=== PATIENT | female | born 1935 | race Caucasian/White ===

== ENCOUNTER 2018-06-01 20:06 | Emergency (ER) | payer MEDICARE, OTHER ==
[~2018-06-01] VITALS: Ht 160 cm; Wt 63.5 kg
[~2018-06-01 20:06] MED LIST: ACET325 PO; ASPI325 PO; CEPH500 PO; CYAN1000 PO; Cipro500 MG PO; ENOX40I SC; L THYROXINE PO; LEVSOD50 PO; METO25ER PO; NAPR220 PO; OXYACE5T PO; SERT25 PO; THYROID; VITAMIN D-32000 UNIT PO; Zofran Odt4 MG SL
== END 2018-06-01 22:02 | disposition home or self-care (01) ==
LOC: ER 20:06
DX: S52.501A Unspecified fracture of the lower end of right radius, initial encounter for closed fracture (principal); W10.9XXA Fall (on) (from) unspecified stairs and steps, initial encounter; Z88.8 Allergy status to other drugs, medicaments and biological substances; Z79.899 Other long term (current) drug therapy; Z87.891 Personal history of nicotine dependence
CPT/HCPCS: 29125; 73110; 99283-25

== ENCOUNTER 2022-09-28 15:21 | Inpatient (IN) | payer OTHER, MEDICARE ==
[~2022-09-28] VITALS: Ht 157.5 cm; Wt 44.5 kg
[~2022-09-28 15:21] MED LIST changes: -CYAN1000 PO; +VITAMIN B-122000 MC1 PO; -VITAMIN D-32000 UNIT PO; +Vitamin D1000 UNI1 PO
[2022-09-28] MEDS ORDERED: EUTHYROX50 MCG PO (16:22)
[2022-09-28 17:46] LABS: BASOPHILS ABSOLUTE AUTO 0.04 K/mm3 (0.00-0.23); BASOPHILS PERCENT AUTO 1 % (0-2); EOSINOPHILS ABSOLUTE AUTO 0.02 K/mm3 (0.00-0.68); EOSINOPHILS PERCENT AUTO 0 % (0-6); Hematocrit 32.2 % (33.0-51.0); IMMATURE GRAN ABSOLUTE AUTO 0.02 K/mm3 (0.00-0.10); IMMATURE GRAN PERCENT AUTO 0 % (0-1); LYMPHOCYTES ABSOLUTE AUTO 0.67 K/mm3 (0.84-5.20); LYMPHOCYTES PERCENT AUTO 9 % (21-46); MONOCYTES ABSOLUTE AUTO 0.34 K/mm3 (0.16-1.47); MONOCYTES PERCENT AUTO 5 % (4-13); Mean Corpuscular HGB 31.6 pg (26.0-34.0); Mean Corpuscular HGB Conc 34.2 g/dL (31.5-36.5); Mean Corpuscular Volume 93 fL (80-100); Mean Platelet Volume 9.4 fL (9.1-12.4); NEUTROPHILS ABSOLUTE AUTO 6.31 K/mm3 (1.96-9.15); NEUTROPHILS PERCENT AUTO 85 % (41-73); Platelet Count 170 K/mm3 (150-400); RDW Coefficient Variation 12.7 % (11.7-14.2); RDW Standard Deviation 42.9 fL (35.1-46.3); Red Blood Cell Count 3.48 M/mm3 (3.80-5.20)
[2022-09-28 18:17] LABS: Albumin, Blood 3.5 g/dL (3.4-5.0); Albumin/Globulin Ratio 1.2 (0.8-1.8); Bilirubin, Total 0.5 mg/dL (0.1-1.0); Bun/Creatinine Ratio 21.3 (12.0-20.0); Calcium, Blood 9.6 mg/dL (8.5-10.1); Creatinine, Blood 0.7 mg/dL (0.40-1.00); Potassium, Blood 3.3 mmol/L (3.5-5.5); Total Protein, Blood 6.5 g/dL (6.4-8.2)
--- NOTE | 2022-09-28 19:12 | NUR ---
ADMIT NOTE PATIENT NEW ADMIT FROM ER FOR LEFT HIP FX. TRANSFERRED TO BED. PATIENT'S DAUGHTER PRESENT AND ATTENTIVE. ALERT AND ORIENTED WITH OCC MILD FORGETFULNESS. LEFT LEG IS SHORTENED AND EXTERNALLY ROTATE. KNEE IS BENT AND PROPPED ON PILLOWS. THIGH IS SWOLLEN. SEVERE PAIN WITH MOVEMENT AND REPOSITIONING. HOWEVER RATES PAIN 2/10 AT REST. SCDC PLACED IN ROOM. PUREWICK SET UP IN ROOM. TELE PLACED, NSR AT 89 PER JOEL SUPERVISOR PROP MAKING. EMS FIELD START IV. CALLED DR CUNNINGHAM FOR FLUID ORDERS. REPORT GIVEN TO SENIOR FINANCIAL REPORTING ACCOUNTANT RN.
--- NOTE | 2022-09-28 21:45 | NUR ---
PHYSICIAN CONTACT: PT C/O LEFT JAW PAIN. REPORTS IT FEELS LIKE "SOMEONE HAS PUNCHED ME IN THE JAW." PT C/O NO OTHER PAIN OR DISCOMFORT. DENIES CHEST PAIN. BP WAS 192/[address] CUNNINGHAM CONTACTED, EKG AND TROPONIN ORDERED. PHYSICIAN WAS ALSO TOLD THAT POTASSIUM INFUSION WAS BURNING, PHYSICIAN AWARE.
[2022-09-29] MEDS ORDERED: LOSA25 PO (01:15)
[2022-09-29] MEDS ORDERED: Prozac20 MG PO (01:16)
--- NOTE | 2022-09-29 02:22 | NUR ---
PHYSICIAN CONTACT: PROVIDER INFORMED THAT PT HAS PULLED X2 IV AT THIS TIME AND HAS SOME OCCASSIONAL CONFUSION AND PULLS AT LINES. PT IS ABLE TO ANSWER APPROPRIATELY BUT NEEDS REDIRECTION DURING THOSE OCCASSIONAL TIMES OF CONFUSION. PT KEEPS SAYING "I NEED TO GET UP TO USE THE BATHROOM. REORIENTED AND EDUCATED ON THE FALL RISK AND BEDREST ORDER. PT APPEARS TO UNDERSTAND. NO NEW ORDERS AT THIS TIME.
--- NOTE | 2022-09-29 05:27 | NUR ---
CONTACTED PHYSICIAN: DISCUSSED HIGH BP WITH DR. LY. ORDERED TO STOP FLUIDS AT THIS TIME AND ORDER FOR HYDRALAZINE 10 MG IV Q6 PRN FOR SYSTOLIC >160 WAS OBTAINED.
--- NOTE | 2022-09-29 07:18 | NUR ---
SHIFT SUMMARY: PT REMAINED PAINFUL T/O THE SHIFT. MEDICATED PER EMAR ORDERS. BP REMAINED HIGH, HOSPITALIST WAS CONTACTED (SEE NOTED FOR FURTHER DETAILS.) HYDRALAZINE GIVEN AND FLUIDS HELD. PT REPORTED LEFT JAW PAIN EARLIER IN THE SHIFT, EKG ORDERED AND COMPLETED. TROPOININ LEVELS DRAWN. (SEE NOTE FOR FURTHER INFORMATION.) PT WAS SLIGHTLY CONFUSED T/O THE NIGHT. ABLE TO ANSWER QUESTIONS BUT CONFUSED ABOUT STAYING IN BED DUE TO FX. REOIRENTED. PT WAS PULLING AT HER IV AND LINES, PULLED [address] DUE TO PAIN WITH ATTEMPTING TO USE BEDPAN. NPO SINCE MIDNIGHT. AT THIS TIME PT IS RESTING IN BED WITH CALL LIGHT IN REACH. PLANS FOR SURGERY TODAY.
--- NOTE | 2022-09-29 08:36 | NUR ---
[employer] NOTIFIED THIS RN OF PROLONGED QTC INTERVALS THROUGHOUT NOC SHIFT. REPORTED CURRENT QTC INTERVAL TO BE 0.54 SECONDS LONG. THIS RN SPOKE WITH KARAN BURNETT DURING HIS CONSULT WITH PATIENT, ASKED TO HAVE CARDIOLOGY CONSULTED D/T PLANNING FOR SURGERY TODAY. DR SQUIRES CONSULTED. THIS RN ALSO NOTIFIED HOSPITALIST PATIENT IS ADMITTED TO THEIR SERVICES. NO NEW ORDERS FROM HOSPITALIST. NO CHANGES NOTED IN PATIENT CONDITION.
[2022-09-29 10:26] LABS: Potassium, Blood 3.9 mmol/L (3.5-5.5); Thyroid Stimulating Hormone 3.46 uIU/mL (0.360-4.800)
--- NOTE | 2022-09-29 17:17 | NUR ---
SHIFT SUMMARY NO ACUTE CHANGES THIS SHIFT. PATIENT HAS REMAINED BEDREST, PAIN MANAGED PER EMAR. PUREWICK IN PLACE W/ ATTENDS, CHANGED PRN. PATIENT KEPT NPO T/O DAY ALTHOUGH SURGERY WAS DELAYED TODAY D/T OR AVAILABILITY, PLAN FOR SURGERY TOMORROW 09/30/[address] HUANG. PLAN TO BE NPO AT MIDNIGHT. TELE IN PLACE, SEE PREVIOUS NOTE REGARDING PROLONGED QT INTERVALS. CARDIOLOGY CLEARED FOR SURGERY. CALL LIGHT IN REACH, USES APPROPRIATELY. WILL REPORT TO ONCOMING RN AT 1900.
--- NOTE | 2022-09-30 04:28 | NUR ---
SUMMARY NO NEW ISSUES, PT SLEPT FOR MOST OF SHIFT. PUREWICK APPLIANCE CHANGED OUT, PT TOLERATING IT WELL. PT DID PULL OUT HER IV DURING THE SHIFT, IT WAS REPLACED. PT HAS REMAINED NPO SINCE [place]. CALL LIGHT IN REACH AND BED ALARM ON.
--- NOTE | 2022-09-30 11:18 | NUR ---
PATIENT IS BEING TAKEN BACK TO OR.
--- NOTE | 2022-09-30 14:30 | NUR ---
SHIFT SUMMARY: PATIENT CAME BACK FROM PACU TODAY AT 1430. POD 0 LEFT HIP REPAIR PATIENT IS DROWSY BUT EASILY AWOKEN WITH TOUCH/SAYING HER NAME. HER LEFT HIP HAS FOAM WITH GAUZE DRESSING THAT IS C/D/I. DENIES NUMBNESS OR TINGLING AND CAN MOVE FINGERS AND TOES WHEN ASKED. PATIENT DENIES PAIN AT THIS TIME. SHE HAS THE PUREWICK IN PLACE WITH YELLOW URINE DRAINING INTO THE CANESTER. SHE IS TOLERATING SMALL AMOUNTS OF PO INTAKE. DAUGHTER IS AT BEDSIDE. CALL LIGHT WITHIN REACH. BED ALARM PLACED SINCE PATIENT WAS CONFUSED IN PACU BUT IS NOW COOPERATIVE/CALM.
--- NOTE | 2022-10-01 04:29 | NUR ---
SHIFT [facility] POD#1 L HIP PINNING. BULKY GAUZE DRESSING IN PLACE ON L HIP C/D/I. PATIENT IS ABLE TO VOID USING BEDPAN, TOLERATE PO INTAKE. IV FLUIDS RUNNING. DENIES N/T, N/V. MEDICATED FOR PAIN PER EMAR. PLAN FOR PT/OT EVAL THIS AM. VSS PATIENT IS SOMEWHAT FORGETFUL BUT PLEASANT AND COOPERATIVE. BED ALARM IS ON, AND CALL LIGHT IS IN REACH. TURN Q2 T/O SHIFT. CALL LIGHT IS IN REACH. WILL CTM AND TREAT PER ORDERS.
--- NOTE | 2022-10-01 11:54 | NUR ---
NURSE ORTHO FINISHED VENOUS DOPPLER OF RLE, NOTIFIED THIS RN OF THE FOLLOWING FINDINGS: POSITIVE DVT TO RIGHT PTV SHORT SEGMENT, BELOW THE KNEE. THIS RN NOTIFIED DR TRAN AT THIS TIME. NO ORDERS GIVEN.
--- NOTE | 2022-10-01 13:10 | NUR ---
THIS RN CALLED DR TRAN REGARDING PROCEEDING WITH PT ORDERS ALTHOUGH A DVT WAS FOUND. VERBALIZED THAT IT WAS STILL [place]Y FOR HER TO AMBULATE TO CHAIR AND WORK WITH PT.
--- NOTE | 2022-10-01 17:29 | NUR ---
SHIFT SUMMARY NO ACUTE CHANGES THIS SHIFT. POD 1 LEFT HIP NAILING. DRESSING TO LEFT HIP C/D/I. PAIN MANAGED WELL PER EMAR. PATIENT WORKED WITH PT, 2P ASSIST TO CHAIR W/ FWW & GB. EATING, DRINKING, AND VOIDING WELL. INCONT OF URINE, ATTENDS IN PLACE AND CHANGED NEEDED. USES CALL LIGHT APPROPRIATELY, WILL REPORT TO ONCOMING RN AT 1900.
--- NOTE | 2022-10-02 05:51 | NUR ---
SHIFT SUMMARY AOX2-3 SELF, SITUATION & PLACE. FORGETFUL @TIMES. REPETITIVE SPEECH. POD 2- L HIP PINNING, REPORTS MILD PAIN 4-5/10. MEDICATED c NORCO @HS & TYLENOL THIS AM. PT ABLE TO REST WELL. CAN WIGGLE L FOOT TOES, L HIP EDEMA > R HIP, GAUZE & MEDIPORE DRESSING ON L HIP C/D/I. VSS. TELE NSR HR 78. 2 PER c GB FOR TRANSFER TO BSC OR CHAIR. INCONT/CONT OF URINE, URINE IS VERY STRONG FOUL SMELLING. CALL LIGHT IN REACH & BED ALARM IN PLACE. WILL MONITOR.
[2022-10-02 13:40] LABS: BASOPHILS ABSOLUTE AUTO 0.07 K/mm3 (0.00-0.23); BASOPHILS PERCENT AUTO 1 % (0-2); EOSINOPHILS ABSOLUTE AUTO 0.25 K/mm3 (0.00-0.68); EOSINOPHILS PERCENT AUTO 4 % (0-6); Hematocrit 22.2 % (33.0-51.0); Hemoglobin 7.5 g/dL (11.5-16.0); IMMATURE GRAN ABSOLUTE AUTO 0.01 K/mm3 (0.00-0.10); IMMATURE GRAN PERCENT AUTO 0 % (0-1); LYMPHOCYTES ABSOLUTE AUTO 1.24 K/mm3 (0.84-5.20); LYMPHOCYTES PERCENT AUTO 21 % (21-46); MONOCYTES ABSOLUTE AUTO 0.37 K/mm3 (0.16-1.47); MONOCYTES PERCENT AUTO 6 % (4-13); Mean Corpuscular HGB 32.1 pg (26.0-34.0); Mean Corpuscular HGB Conc 33.8 g/dL (31.5-36.5); Mean Corpuscular Volume 95 fL (80-100); Mean Platelet Volume 9.6 fL (9.1-12.4); NEUTROPHILS ABSOLUTE AUTO 4.04 K/mm3 (1.96-9.15); NEUTROPHILS PERCENT AUTO 68 % (41-73); Platelet Count 182 K/mm3 (150-400); RDW Coefficient Variation 12.9 % (11.7-14.2); RDW Standard Deviation 44.3 fL (35.1-46.3); Red Blood Cell Count 2.34 M/mm3 (3.80-5.20); White Blood Cell Count 5.98 K/mm3 (4.00-11.30)
[2022-10-02 14:00] LABS: Bun/Creatinine Ratio 28.1 (12.0-20.0); Creatinine, Blood 0.85 mg/dL (0.40-1.00); Potassium, Blood 3.8 mmol/L (3.5-5.5)
--- NOTE | 2022-10-02 19:31 | NUR ---
SHIFT SUMMARY POD 2 L HIP PINNING, A/O X3, INTERMITTENTLY FORGETFUL AND ANSWERS QUESTIONS WITH NONSENCIAL ANSWERS, UP TO CHAIR WITH 2 MODERATE ASSIST MOSTLY FOR STANDING UP. NO ACUTE EVENTS TODAY, CALL LIGHT IN REACH, REPORT GIVEN TO LENIN DIAZ.
[2022-10-03 05:56] LABS: BASOPHILS ABSOLUTE AUTO 0.05 K/mm3 (0.00-0.23); BASOPHILS PERCENT AUTO 1 % (0-2); EOSINOPHILS ABSOLUTE AUTO 0.24 K/mm3 (0.00-0.68); EOSINOPHILS PERCENT AUTO 4 % (0-6); Hematocrit 24.4 % (33.0-51.0); Hemoglobin 8.2 g/dL (11.5-16.0); IMMATURE GRAN ABSOLUTE AUTO 0.05 K/mm3 (0.00-0.10); IMMATURE GRAN PERCENT AUTO 1 % (0-1); LYMPHOCYTES ABSOLUTE AUTO 1.24 K/mm3 (0.84-5.20); LYMPHOCYTES PERCENT AUTO 21 % (21-46); MONOCYTES PERCENT AUTO 9 % (4-13); Mean Corpuscular HGB 32.2 pg (26.0-34.0); Mean Corpuscular HGB Conc 33.6 g/dL (31.5-36.5); Mean Corpuscular Volume 96 fL (80-100); Mean Platelet Volume 9.6 fL (9.1-12.4); NEUTROPHILS ABSOLUTE AUTO 3.79 K/mm3 (1.96-9.15); NEUTROPHILS PERCENT AUTO 65 % (41-73); Platelet Count 205 K/mm3 (150-400); RDW Coefficient Variation 12.8 % (11.7-14.2); RDW Standard Deviation 44.5 fL (35.1-46.3); Red Blood Cell Count 2.55 M/mm3 (3.80-5.20); White Blood Cell Count 5.87 K/mm3 (4.00-11.30)
[2022-10-03 06:23] LABS: Bun/Creatinine Ratio 25.8 (12.0-20.0); Calcium, Blood 9.4 mg/dL (8.5-10.1); Creatinine, Blood 0.74 mg/dL (0.40-1.00); Potassium, Blood 3.7 mmol/L (3.5-5.5)
--- NOTE | 2022-10-03 06:45 | NUR ---
Patient oriented to self, forgetful at times, but easily redirected. Patient agitated zxprexa given x1; MD notified. BP elevated, patient was agitated at this time, bp taken again with systolics of 170's hydralazine given x1. BP reevaluated; effective response to hydralazine. PRN pain meds given. Patient able to pivot to bedside commode with 2 nurse assist. Surgical sites clean dry and intact.
[2022-10-03 17:37] LABS: Source, Urine Clean Catch
[2022-10-03 17:40] LABS: Appearance, Urine Clear (Clear); Bilirubin, Urine Neg (Neg); Blood, Urine 1+ (Neg); Color, Urine Yellow (P-Yellow); Glucose Qualitative, Urine Neg (Neg); Ketones, Urine Neg (Neg); Leukocyte Esterase, Urine 1+ (Neg); Nitrite, Urine Neg (Neg); Protein, Urine 1+ (Neg); Urobilinogen, Urine NORM (Normal); pH, Urine 6.5 (5.0-8.0)
[2022-10-03 17:51] LABS: Bacteria Mod /hpf; Hyaline Casts 0-2 /lpf (0-2); Squamous Epithelial Cells Mod /hpf (Few)
--- NOTE | 2022-10-03 18:08 | NUR ---
SHIFT SUMMARY PT A&OX2/PLEASANT & COOPERATIVE WITH CARE, FOLLOWS DIRECTIONS & CUES WELL. LIZANDRO PO, INTAKE VERY GOOD, INDEPENDENT WITH MEAL SET UP. AMB 1 PP MOD ASSIST WITH FWW & GB, UP TO CHAIR T/O SHIFT. VOIDING WELL. PAIN MANAGED WELL WITH TYLENOL. POD3 L HIP, AQUACEL DRESSINGS CDI. WILL REPORT TO ONCOMING NOC RN.
--- NOTE | 2022-10-04 06:58 | NUR ---
SHIFT SUMMARY POD 4 L HIP REPAIR. AOX1-SELF ONLY. PLEASENT & COOPERATIVE c CARE. ABLE TO REDIRECT & FOLLOW DIRECTIONS. REPORTS MILD 4/10 PAIN L HIP, MEDICATED 1X c TYLENOL. AQUACEL DRESSING C/D/I. 1-2 ASSIST c GB & FWW TO BSC. CALL LIGHT & BED ALARM IN PLACE FOR SAFETY.
[2022-10-04 12:30] LABS: SARS-Cov-2 (COVID-19) PCR, MMC NEGATIVE (NEGATIVE)
--- NOTE | 2022-10-04 13:00 | NUR ---
DISCHARGE SUMMARY PT A&O1-2, DAUGHTER AT BEDSIDE, LIZANDRO PO, VOIDING WELL/ATTENDS ON FOR LEAKAGE, AMB 1 PP MOD ASSIST FWW/GB, PAIN MANAGED WITH TYLENOL. LEFT FLOOR VIA TRANSPORT TO [facility], ALL PERSONAL POSSESSIONS WITH DAUGHTER. REPORT CALLED TO AT 1300, PT LEFT AT 1330.
== END 2022-10-04 13:34 | DRG 481 ==
LOC: ER 15:21 → ERHOLD 17:08 → SURS 17:08
PROVIDERS: Internal Medicine; Internal Medicine Cardiovascular Disease; Orthopaedic Surgery; Student in an Organized Health Care Education/Training Program; ADMIT Internal Medicine
PROC: 0QS736Z Reposition Left Upper Femur with Intramedullary Internal Fixation Device, Percutaneous Approach (ICD-10-PCS; principal; 2022-09-30 12:00)
DX: S72.142A Displaced intertrochanteric fracture of left femur, initial encounter for closed fracture (principal); I82.441 Acute embolism and thrombosis of right tibial vein; Z66 Do not resuscitate; Z20.822 Contact with and (suspected) exposure to COVID-19; E87.6 Hypokalemia; G31.84 Mild cognitive impairment of uncertain or unknown etiology; I10 Essential (primary) hypertension; E78.5 Hyperlipidemia, unspecified; R94.31 Abnormal electrocardiogram [ECG] [EKG]; E03.9 Hypothyroidism, unspecified; Z96.641 Presence of right artificial hip joint; Z87.891 Personal history of nicotine dependence; Z98.890 Other specified postprocedural states; Z88.8 Allergy status to other drugs, medicaments and biological substances; Z79.899 Other long term (current) drug therapy; Z90.710 Acquired absence of both cervix and uterus; W01.198A Fall on same level from slipping, tripping and stumbling with subsequent striking against other object, initial encounter; Y93.01 Activity, walking, marching and hiking; Y92.000 Kitchen of unspecified non-institutional (private) residence as the place of occurrence of the external cause
CPT/HCPCS: 36415; 73502; 80048; 80053; 81001; 83735; 84132; 84443; 84484; 85025; 93005; 93010; 93971; 97110; 97116; 97162; 99285-25; A9270; C1713; J0360; J0690; J1100; J1885; J2250; J2405; J2704; J3010; J3480; J7050; J7120; U0004

== ENCOUNTER → 2023-05-15 | Outpatient (CLI) | payer MEDICARE, OTHER ==
[~2023-05-15] MED LIST changes: +EUTHYROX50 MCG PO; +LOSA25 PO; +Prozac20 MG PO
[2023-05-15 18:52] LABS: Appearance, Urine Clear (Clear); Bilirubin, Urine Neg (Neg); Blood, Urine Neg (Neg); Glucose Qualitative, Urine Neg (Neg); Ketones, Urine Neg (Neg); Leukocyte Esterase, Urine Neg (Neg); Nitrite, Urine Neg (Neg); Protein, Urine Neg (Neg); Urobilinogen, Urine NORM (Normal); pH, Urine 6.5 (5.0-8.0)
[2023-05-15 19:15] LABS: Color, Urine Pale Yellow (P-Yellow)
== END | disposition home or self-care (01) ==
LOC: LAB SHORT 15:25 → LAB 15:25
PROVIDERS: Physician Assistant Medical
DX: N39.0 Urinary tract infection, site not specified (principal)
CPT/HCPCS: 81003